=== PATIENT | male | born 1950 | race Caucasian/White ===

== ENCOUNTER 2021-12-15 01:10 | Observation (INO) | payer OTHER ==
[2021-12-15 02:34] LABS: BASO % 0.3 % (0-2.0); EOS % 0.4 % (0-4.5); HEMATOCRIT 46.5 % (35.4-49); HEMOGLOBIN 15.5 GM/dL (11.7-16.9); LYMPH % 7.6 % (8-40); MCH 30.7 pg (25.7-33.7); MCHC 33.3 g/dl (32.0-35.9); MEAN CELL VOLUME 92.1 fl (80-96); MEAN PLT VOLUME 7.9 fl (7.5-11.1); MONO % 6.1 % (3.8-10.2); NEUT % 85.6 % (42.8-82.8); PLATELET COUNT 277 10^3/uL (134-434); RBC 5.05 M/mm3 (4.00-5.60); RDW 13.5 % (11.9-15.9); WHITE BLOOD COUNT 10.7 K/mm3 (4.0-10.0)
[2021-12-15 02:38] LABS: INR 0.98 (0.83-1.09); PROTHROMBIN TIME (PATIENT) 11.3 SEC (9.7-13.0)
[2021-12-15 02:40] LABS: ACTIVATED PTT 34.6 SECONDS (25.2-36.5)
[2021-12-15 02:50] LABS: CALCIUM 8.6 mg/dL (8.5-10.1)
[2021-12-15 02:51] LABS: ALBUMIN 3.6 g/dl (3.4-5.0); BLOOD UREA NITROGEN 17.1 mg/dL (7-18)
[2021-12-15 02:54] LABS: CREATININE 0.8 mg/dL (0.55-1.3)
[2021-12-15 02:56] LABS: BILIRUBIN,TOTAL 0.2 mg/dL (0.2-1); TOT PROT 6.6 g/dl (6.4-8.2)
[2021-12-15] MEDS ORDERED: ACETAMINOPHEN 325 MG TABLET (FP) PO PRN (04:20)
[2021-12-15] MEDS ORDERED: POLYETHYLENE GLYCOL (HEALTHYLAX) 3350 17 GM PACKET PO PRN (04:20)
[2021-12-15 05:22] VITALS: BMI 31.9
[2021-12-15 09:40] LABS: PHOSPHOROUS 3.6 mg/dl (2.5-4.9)
[2021-12-15] MEDS ORDERED: SERTRALINE HCL 25 MG TABLET (FP) PO SCH (10:30)
[2021-12-15] MEDS: ENOXAPARIN NA (PORCINE) 40 MG/0.4 ML DISP.SYRIN SQ SCH (10:39)
[2021-12-15] MEDS: PANTOPRAZOLE 40 MG TABLET PO SCH (10:39)
[2021-12-15 15:48] LABS: COCAINE, UR NEGATIVE (NEGATIVE); PHENCYCLIDINE,URINE NEGATIVE (NEGATIVE); URINE BENZODIAZEPINES NEGATIVE (NEGATIVE)
[2021-12-15 15:49] LABS: METHADONE, UR NEGATIVE (NEGATIVE); OPIATES, URI NEGATIVE (NEGATIVE); URINE AMPHETAMINES NEGATIVE (NEGATIVE); URINE BARBITURATES NEGATIVE (NEGATIVE)
[2021-12-15] MEDS ORDERED: LORazepam 1 MG TABLET PO PRN (17:38)
[2021-12-15] MEDS ORDERED: CALCIUM CARBONATE 650 MG TABLET PO PRN (17:40)
[2021-12-15] MEDS: ROSUVASTATIN CA 20 MG TABLET PO SCH ×2 (21:15→22:05)
[2021-12-15] MEDS ORDERED: FAMOTIDINE 20 MG TABLET PO SCH (22:00)
[2021-12-15] MEDS ORDERED: LORazepam 1 MG TABLET PO SCH (22:00)
[2021-12-16 08:30] LABS: ALBUMIN 3.6 g/dl (3.4-5.0); CALCIUM 8.7 mg/dl (8.5-10); CREATININE 0.6 mg/dl (0.55-1.3); TOT PROT 5.9 g/dl (6.4-8.2)
[2021-12-16 08:31] LABS: BILIRUBIN,TOTAL 0.6 mg/dl (0.2-1)
[2021-12-16 08:33] LABS: CHOLESTEROL 203 mg/dl (50-200); HDL CHOLESTEROL 41 mg/dl (40-60); LDL CHOLESTEROL (ONLY DFH) 141 mg/dl (5-100); TRIGLYCERIDES 105 mg/dl (0-150)
[2021-12-16] MEDS: PANTOPRAZOLE 40 MG TABLET PO SCH (09:07)
[2021-12-16] MEDS: ENOXAPARIN NA (PORCINE) 40 MG/0.4 ML DISP.SYRIN SQ SCH (09:07)
[2021-12-16] MEDS ORDERED: SERTRALINE HCL 50 MG TABLET (FP) PO SCH (10:00)
[2021-12-16 14:48] VITALS: BP 141/67; PULSE 76; RESP 20; TEMP 97.9
== END 2021-12-16 16:55 | disposition home or self-care (01) ==
LOC: FER 01:10 → FM/S 04:25 → INTOOBSV 04:25
PROVIDERS: ADMIT Internal Medicine; ATTEND Internal Medicine
PROC: 3E013GC Introduction of Other Therapeutic Substance into Subcutaneous Tissue, Percutaneous Approach (ICD-10-PCS; principal; 2021-12-15)
DX: I45.2 Bifascicular block (principal); F41.9 Anxiety disorder, unspecified; R42 Dizziness and giddiness; K21.9 Gastro-esophageal reflux disease without esophagitis; R73.9 Hyperglycemia, unspecified; Z88.6 Allergy status to analgesic agent; Z88.8 Allergy status to other drugs, medicaments and biological substances; Z86.718 Personal history of other venous thrombosis and embolism
CPT/HCPCS: 0241U-QW; 36415; 71045-TC-FY; 80053; 80061; 80307; 82550; 83036; 83735; 84100; 84439; 84443; 84484; 85025; 85610; 85730; 93005; 93306-TC; 96372; 99285-25; G0378

== ENCOUNTER 2022-01-13 14:26 | Emergency (ER) | payer OTHER ==
[2022-01-13 14:57] VITALS: BP 140/84; PULSE 73; RESP 20; TEMP 98.2; BMI 31.5
[2022-01-13] MEDS ORDERED: MECLIZINE HCL 25 MG TABLET (FP) PO ONE (15:41)
[2022-01-13] MEDS ORDERED: MECLIZINE HCL 25 MG TABLET (FP) ONE (15:44)
== END 2022-01-13 17:32 | disposition home or self-care (01) ==
LOC: FER 14:26
DX: R42 Dizziness and giddiness (principal)
CPT/HCPCS: 70450-TC; 93005; 99284-25

== ENCOUNTER 2022-01-22 18:20 | Emergency (ER) | payer OTHER ==
[2022-01-22 19:15] VITALS: BP 155/95; PULSE 79; RESP 18; TEMP 98.6; BMI 31.5
[2022-01-22] MEDS ORDERED: MECLIZINE HCL 25 MG TABLET (FP) PO STA (19:21)
[2022-01-22] MEDS ORDERED: ONDANSETRON *ODT* 4 MG TABLET SL ONE (19:23)
[2022-01-22] MEDS ORDERED: MECLIZINE HCL 25 MG TABLET (FP) ONE (19:32)
[2022-01-22] MEDS ORDERED: ONDANSETRON *ODT* 4 MG TABLET ONE (19:33)
== END 2022-01-22 19:53 | disposition home or self-care (01) ==
LOC: FER 18:20
DX: R42 Dizziness and giddiness (principal)
CPT/HCPCS: 99283-25; Q0162

== ENCOUNTER 2022-03-17 05:11 | Emergency (ER) | payer OTHER ==
[2022-03-17 05:48] VITALS: BP 166/89; PULSE 88; RESP 20; TEMP 98.5; BMI 31.4
== END 2022-03-17 08:19 | disposition home or self-care (01) ==
LOC: JER 05:11
DX: M70.21 Olecranon bursitis, right elbow (principal); M25.521 Pain in right elbow
CPT/HCPCS: 73070-TC-RT-FY; 73090-TC-RT-FY; 99284-25